=== PATIENT | male | born 2000 | race Two or more races ===

== ENCOUNTER 2022-06-22 16:18 | Inpatient (IN) | payer MEDICAID ==
[~2022-06-22] VITALS: Ht 177.8 cm; Wt 70.3 kg
[2022-06-22 18:57] LABS: BASOPHILS % (AUTO) 0.7 % (0.0-2.0); EOSINOPHILS % (AUTO) 0.2 % (1.0-6.0); HEMATOCRIT 39.5 % (41-53); HEMOGLOBIN 13.3 g/dL (13.5-17.5); LYMPHOCYTES # (AUTO) 1.8 K/uL (1.0-4.8); LYMPHOCYTES % (AUTO) 23.9 % (22.0-44.0); MEAN CORPUSCULAR HEMOGLOBIN 29.9 pg (26.0-34.0); MEAN CORPUSCULAR HGB CONC 33.6 G/dL (31.0-37.0); MEAN CORPUSCULAR VOLUME 89 fL (80-100); MONOCYTES # (AUTO) 0.8 K/uL (0.1-1.0); MONOCYTES % (AUTO) 10.7 % (2.0-9.0); NEUTROPHILS % (AUTO) 64.5 % (40.0-70.0); PLATELET COUNT (AUTO) 317 K/uL (150-450); RED BLOOD CELL COUNT(AUTO) 4.43 MIL/uL (4.50-5.90); RED CELL DISTRIBUTION WIDTH 13.9 % (11.5-14.5)
[2022-06-22 19:09] LABS: ANION GAP 10 mmol/L (8-16); CALCIUM, TOTAL 9.3 mg/dL (8.8-10.5); CARBON DIOXIDE 26 mmol/L (22-29); CHLORIDE 102 mmol/L (98-107); GLUCOSE,RANDOM 93 mg/dL (70-110); POTASSIUM 3.8 mmol/L (3.5-5.1); SODIUM SERUM 138 mmol/L (136-145); UREA NITROGEN, BLOOD 7 mg/dL (7-18)
[2022-06-22 19:10] LABS: GLOMERULAR FILTR. RATE CALC > 60 mL/min (>60)
[2022-06-22 19:14] LABS: ALANINE AMINOTRANSFERASE 34 U/L (12-78); ALBUMIN 4.7 g/dL (3.4-5.0); ALKALINE PHOSPHATASE 77 U/L (46-116); ASPARTATE AMINOTRANSFERASE 27 U/L (15-37); BILIRUBIN,TOTAL 0.8 mg/dL (0.1-1.0); TOTAL PROTEIN, SERUM 7.7 g/dL (6.4-8.2)
[2022-06-22 20:27] LABS: AMPHET/METH SCREEN,URINE NEGATIVE (NEGATIVE); BARBITURATE SCREEN, URINE NEGATIVE (NEGATIVE); BENZODIAZEPINES SCREEN,URINE NEGATIVE (NEGATIVE); CANNABINOID SCREEN,URINE NEGATIVE (NEGATIVE); COCAINE SCREEN,URINE NEGATIVE (NEGATIVE); METHADONE SCREEN, URINE NEGATIVE (NEGATIVE); OPIATE SCREEN,URINE NEGATIVE (NEGATIVE); PHENCYCLIDINE SCREEN,URINE NEGATIVE (NEGATIVE)
[2022-06-23] MEDS ORDERED: LORazepam 2 MG/ML VIAL IM ONE (00:45)
[2022-06-23] MEDS ORDERED: HALOPERIDOL LACTATE 5 MG/ML VIAL IM ONE (00:45)
[2022-06-23] MEDS ORDERED: DiphenhydrAMINE HCL 50 MG/ML VIAL IM ONE (00:45)
[2022-06-23] MEDS ORDERED: RISP2TAB45 PO (01:40)
[2022-06-23] MEDS ORDERED: RISP1TAB48 PO (01:40)
[2022-06-23 01:51] LABS: COVID AG,FIA SOURCE NASOPHARYNGEAL
[2022-06-23] MEDS ORDERED: ZOLPIDEM TARTRATE 10 MG TABLET PO PRN (02:15)
[2022-06-23] MEDS: HALOPERIDOL 5 MG TABLET PO PRN (05:52)
[2022-06-23] MEDS: LORazepam 2 MG TABLET PO PRN (05:53)
[2022-06-23] MEDS ORDERED: GuaiFENesin/D-METHORPHAN [SUGAR-FREE] 200-20MG/10 ML SYRUP UDCUP PO PRN (10:15)
[2022-06-23] MEDS ORDERED: TUBERCULIN, PURIFIED PROTEIN DERIVATIVE 5 TU/0.1 ML SYRINGE ID ONE (10:15)
[2022-06-23] MEDS ORDERED: LOPERAMIDE HCL 2 MG CAPSULE PO PRN (10:15)
[2022-06-23] MEDS ORDERED: HydrOXYzine PAMOATE 50 MG CAPSULE PO PRN (10:15)
[2022-06-23] MEDS ORDERED: ACETAMINOPHEN 325 MG TABLET PO PRN (10:15)
[2022-06-23] MEDS ORDERED: MAG HYDROX/AL HYDROX/SIMETH ES 30 ML SUSPENSION UDCUP PO PRN (10:15)
[2022-06-23] MEDS ORDERED: MAGNESIUM HYDROXIDE SUSPENSION 30 ML UDCUP PO PRN (10:15)
[2022-06-23] MEDS ORDERED: OLANZapine 5 MG RAPDIS TABLET PO PRN (10:15)
[2022-06-23] MEDS: THIAMINE 100 MG TABLET PO SCH (16:16)
[2022-06-23 18:53] VITALS: BP 107/71
[2022-06-23] MEDS: MELATONIN 5 MG TABLET PO SCH (20:13)
[2022-06-23] MEDS ORDERED: OLANZapine 5 MG RAPDIS TABLET PO SCH (21:00)
[2022-06-24 00:25] VITALS: BP 110/69
[2022-06-24 07:20] LABS: HEMOGLOBIN A1C 5.3 % (3.8-5.6)
[2022-06-24 07:32] LABS: CHOL/HDL RATIO 2.4 (4.2-7.3); FREE T4 (FREE THYROXINE) 1.35 ng/dL (0.76-1.46); THYROID STIMULATING HORMONE 0.73 uIU/mL (0.36-3.74)
[2022-06-24 08:13] VITALS: BP 113/69
[2022-06-24] MEDS: MULTIVITAMINS WITH MINERALS, THERAPEUTIC TABLET PO SCH (08:47)
[2022-06-24] MEDS: FOLIC ACID 1 MG TABLET PO SCH (08:47)
[2022-06-24] MEDS: THIAMINE 100 MG TABLET PO SCH ×2 (08:47→16:55)
[2022-06-24] MEDS: NALTREXONE HCL 50 MG TABLET PO SCH (08:47)
[2022-06-24] MEDS: HALOPERIDOL 5 MG TABLET PO PRN (13:40)
[2022-06-24] MEDS: LORazepam 2 MG TABLET PO PRN ×2 (13:40→20:24)
[2022-06-24 20:00] VITALS: BP 115/82
[2022-06-24] MEDS: MELATONIN 5 MG TABLET PO SCH (20:24)
[2022-06-24] MEDS: OLANZapine 10 MG RAPDIS TABLET PO SCH (20:24)
[2022-06-25] MEDS: THIAMINE 100 MG TABLET PO SCH ×2 (08:17→16:41)
[2022-06-25] MEDS: FOLIC ACID 1 MG TABLET PO SCH (08:17)
[2022-06-25] MEDS: MULTIVITAMINS WITH MINERALS, THERAPEUTIC TABLET PO SCH (08:17)
[2022-06-25] MEDS: NALTREXONE HCL 50 MG TABLET PO SCH (08:17)
[2022-06-25 08:21] VITALS: BP 139/79
[2022-06-25] MEDS ORDERED: OLAN10TA26 PO (14:11)
[2022-06-25] MEDS ORDERED: NALT50TA PO (14:11)
[2022-06-25] MEDS ORDERED: MELA5TAB40 PO (14:11)
[2022-06-25] MEDS: LORazepam 2 MG TABLET PO PRN (16:41)
[2022-06-25 20:12] VITALS: BP 133/83
[2022-06-25] MEDS: OLANZapine 10 MG RAPDIS TABLET PO SCH (20:15)
[2022-06-25] MEDS: MELATONIN 5 MG TABLET PO SCH (20:15)
[2022-06-26 08:11] VITALS: BP 121/61
[2022-06-26] MEDS: NALTREXONE HCL 50 MG TABLET PO SCH (08:15)
[2022-06-26] MEDS: THIAMINE 100 MG TABLET PO SCH (08:15)
[2022-06-26] MEDS: MULTIVITAMINS WITH MINERALS, THERAPEUTIC TABLET PO SCH (08:15)
[2022-06-26] MEDS: FOLIC ACID 1 MG TABLET PO SCH (08:15)
== END 2022-06-26 11:34 | disposition home or self-care (01) | DRG 750 ==
LOC: EMS 16:18 → B3A 06-23 02:13 → EDBD 06-23 02:13 → B3A 06-23 15:10
PROVIDERS: ADMIT Psychiatry & Neurology Psychiatry; ATTEND Psychiatry & Neurology Psychiatry
DX: F20.9 Schizophrenia, unspecified (principal); Z91.19 Patient's noncompliance with other medical treatment and regimen; D64.9 Anemia, unspecified; Z20.822 Contact with and (suspected) exposure to COVID-19; F17.210 Nicotine dependence, cigarettes, uncomplicated; Z55.9 Problems related to education and literacy, unspecified; Z78.1 Physical restraint status; Z65.3 Problems related to other legal circumstances; Z63.9 Problem related to primary support group, unspecified; Z59.9 Problem related to housing and economic circumstances, unspecified
CPT/HCPCS: 71045; 80053; 80061; 83036; 84439; 84443; 85025; 86592; 87081; 99285; J1200; J1630; J2060; Q9967; 36415-L1; 36415-TC